=== PATIENT | male | born 1945 | race Caucasian/White ===

== ENCOUNTER 2017-08-14 08:40 | Outpatient (CLI) | payer MEDICARE, BC ==
[2017-08-14] MEDS ORDERED: Iopamidol 370 76% 100 ML VIAL ONE (09:00)
--- NOTE | 2017-08-14 12:13 | CT ---
CT NECK SOFT TISSUES WITH CONTRAST: INDICATIONS: Neck swelling. Mass. Lump of neck/head. COMPARISON: No prior imaging comparison is available. FINDINGS: Lateral to the left sternocleidomastoid muscle, there is a partially cystic and solid mass with a flavia meter of approximately 2.4 cm, underlying the left platysma. A partially cystic and solid mass is al so seen within the right buccal region, inferiorly, overlying the mid to posterior body of the right aspect of the mandible. This measures approximately 1.1 cm in diameter. There are scattered, mildly prominent bilateral cervical chain lymph nodes. Mild prominence of a sub mental lymph node is present, to the right of midline, with an axial diameter of approximately 1 cm. The thyroid gland is unremarkable. There is no significant abnormality of the salivary glands. The aerodigestive tract is patent. No consolidation at the imaged upper lung zones. There is mild irreg ularity and focal thickening of the left suboccipital skin surface. This may be related to an area o f scar/inflammation. Correlate with physical exam. IMPRESSION: There are findings that indicate necrotic adenopathy of the left neck and right facial soft tissues. These may relate to a metastatic process, such as squamous cell malignancy, given the morphologic ap pearance. Further evaluation with percutaneous sampling may prove useful as indicated. POS: YANDEL
== END 2017-08-14 08:41 | disposition home or self-care (01) ==
LOC: SCSCT 08:40
PROVIDERS: ATTEND Otolaryngology Otolaryngic Allergy
DX: R22.1 Localized swelling, mass and lump, neck (principal); R22.0 Localized swelling, mass and lump, head
CPT/HCPCS: 70491; 82565

== ENCOUNTER 2022-12-16 09:30 | Outpatient (CLI) | payer MEDICARE | END 2022-12-16 09:31 | disposition home or self-care (01) | LOC: ULT 09:30 | PROVIDERS: ATTEND Family Medicine | DX: Z13.6 Encounter for screening for cardiovascular disorders (principal) | CPT/HCPCS: 76706 ==